=== PATIENT | female | born 1955 | race Caucasian/White ===

== ENCOUNTER 2016-12-31 08:21 | Day surgery (SDC) | payer OTHER ==
--- NOTE | 2016-12-30 14:18 | HISTORY AND PHYSICAL E ---
History and Physical NAME: ROSALINE GOODMAN : 1955 AGE: 61Y ADMITTED: 12/31/2016 ROOM: HISTORY: Known to me. I saw her back in 2006 for dysphagia, upper endoscopy for dysphagia. She does see Dr. Neha Barboza, where she did have upper endoscopy. The patient did have upper endoscopy by Dr. Neha Barboza for dysphagia. Now, patient for colon exam. I saw her in 2009, and she did have esophagitis, gastritis, no ulcers. The patient presents at this time for colonoscopy. The patient did have ultrasonography, which shows the following: Ultrasound of liver normal. Gallbladder resected. White count 5, hemoglobin 13. Patient at this time for colon exam. The patient does have reflux. Abdominal pain. She did have cholecystectomy. The patient is on PPI. Question of Crohn's disease, IBS, diverticulosis. ALLERGIES: 1. SULFA. 2. BACTRIM. PHYSICAL EXAMINATION: GENERAL: Pleasant, alert, oriented, in no acute distress. VITAL SIGNS: Blood pressure 120/80, pulse 80, respirations 18, temp is 98. HEAD, EYES, EARS, NOSE, THROAT: Normal. NECK: Supple. LUNGS: Clear. ABDOMEN: Soft. NEUROLOGIC: Exam negative. CONCLUSION: Question diverticulosis. PLAN: Colon screening. Admit 12/31. DICTATING PHYSICIAN: BASSEM SKELTON M.D. [id number] PHY#: [id number] ID: [id number] JOB#: [id number] ACCT: [id number] cc:BASSEM SKELTON M.D. >
[~2016-12-31 08:21] MED LIST: EPINEPHRINE INJ 1 MG/10 ML DISP.SYRIN ONE; FLUMAZENIL INJ 0.5 MG/5 ML VIAL IV ONE; GLUCAGON,HUMAN RECOMB 1 MG INJ ONE; GLYCOPYRROLATE INJ 0.4 MG/2 ML VIAL ONE; LIDOCAINE 2% JELLY 30 ML TUBE ONE; NALOXONE HCL INJ/PF 0.4 MG/1 ML SDV ONE; ONDANSETRON HCL INJ/PF 4 MG/2 ML SDV ONE
[2016-12-31] MEDS: MIDAZOLAM 2 MG/2 ML INJ ONE ×2 (09:31→09:36)
[2016-12-31] MEDS: FENTANYL CITRATE INJ/PF 100 MCG/2 ML AMPUL ONE ×2 (09:33→09:44)
[2016-12-31 11:05] LABS: ABSOLUTE LYMPHOCYTES (AUTO) 2.2 10^3/uL (0.5-4.7); ABSOLUTE MONOCYTES (AUTO) 0.5 10^3/uL (0.1-1.4); ABSOLUTE NEUT (AUTO) 6.4 10^3/uL (1.7-8.2); BASOPHILS % (AUTO) 0.3 % (0-2); EOSINOPHILS % (AUTO) 0.5 % (0-6); HEMATOCRIT 38.4 % (36.0-47.0); HEMOGLOBIN 12.8 g/dL (12.0-15.5); LYMPHOCYTES % (AUTO) 23.8 % (13-45); MEAN CORPUSCULAR HEMOGLOBIN 30.7 pg (27.0-33.4); MEAN CORPUSCULAR HGB CONC 33.3 g/dL (32.0-36.0); MEAN CORPUSCULAR VOLUME 92 fl (80-97); MONOCYTES % (AUTO) 5.4 % (3-13); RED BLOOD COUNT 4.17 10^6/uL (3.72-5.28); RED CELL DISTRIBUTION WIDTH 13.2 % (11.5-14.0); WHITE BLOOD COUNT 9.1 10^3/uL (4.0-10.5)
[2016-12-31 11:18] VITALS: BP 138/81
[2016-12-31 11:41] LABS: ERYTHROCYTE SEDIMENTATION RATE 13 mm/hr (0-30)
--- NOTE | 2017-01-01 11:11 | OPERATIVE REPORT E ---
Operative Report NAME: ROSALINE GOODMAN : 1955 AGE: 61Y DATE OF SURGERY: 12/31/2106 ROOM: PREOPERATIVE DIAGNOSIS: Colon screening. POSTOPERATIVE DIAGNOSES: 1. External hemorrhoids mild. 2. Anal tag. 3. Mild sigmoid diverticulosis. PROCEDURE: Colonoscopy. SURGEON: BASSEM SKELTON M.D. ANESTHESIA: Versed 4 and fentanyl 100. TISSUE REMOVED OR ALTERED: Biopsy ascending colon. PROCEDURE: Rectal exam shows anal tag and external hemorrhoids. Sigmoid descending colon, mild diverticulosis. Transverse colon normal. Ascending colon normal. Cecum normal. Biopsy obtained ascending colon, rule out collagenous colitis. Cecum and ascending normal. Transverse colon normal. Sigmoid diverticulosis. Anal wart. PLAN: Hold aspirin and nonsteroidal. Soft diet. Patient advised to take MiraLax after 3 days if she does not have bowel movements. Awaiting biopsy. Consideration for colonoscopy after 10 years. Patient may need to see surgical consult regarding skin tag in the anal area, benign looking and mild external hemorrhoids. DICTATING PHYSICIAN: BASSEM SKELTON M.D. [id number] [facility]#: [id number] ID: [id number] JOB#: [id number] ACCT: [id number] cc:BASSEM SKELTON M.D. >
--- NOTE | 2017-01-01 11:14 | DISCHARGE SUMMARY E ---
Discharge Summary NAME: ROSALINE GOODMAN : 1955 AGE: 61Y ADMITTED: 12/31/2016 DISCHARGED: 12/31/2016 PROCEDURE: Colonoscopy, biopsy. HISTORY: Patient is a 61-year-old female who presented for colon screening. Today's colonoscopy was successful to the cecum. There was no evidence of malignancy. She did have a 2-3 mm anal tag, mild external hemorrhoids, very mild sigmoid diverticulosis. DISCHARGE PLAN: 1. Soft, low residue diet for 3 days. 2. Patient advised to take MiraLAX after 2-3 days if there is no bowel movement. 3. We will obtain baseline CBC with sed rate. 4. Patient to see us in the office in the next few days. FINAL DIAGNOSES: 1. Sigmoid diverticulosis, mild. 2. Anal tag. 3. No malignancy. 4. External hemorrhoids. Patient discussed regarding possible upper endoscopy. We will discuss that with her in a few weeks and if she needs to have upper endoscopy she needs to have propofol in the OR with conscious sedation with anesthesia and propofol. DICTATING PHYSICIAN: BASSEM SKELTON M.D. [id number] PHY#: [id number] ID: [id number] JOB#: [id number] ACCT: [id number] cc:[facility] FLElena SOTELO. BASSEM SKELTON M.D. >
== END 2016-12-31 11:11 | disposition home or self-care (01) ==
LOC: END 08:21
PROVIDERS: ATTEND Specialist
PROC: 0DBH8ZX Excision of Cecum, Via Natural or Artificial Opening Endoscopic, Diagnostic (ICD-10-PCS; principal; 2016-12-31 09:00)
DX: Z12.11 Encounter for screening for malignant neoplasm of colon (principal); K64.4 Residual hemorrhoidal skin tags; K57.30 Diverticulosis of large intestine without perforation or abscess without bleeding; Z88.2 Allergy status to sulfonamides; Z88.1 Allergy status to other antibiotic agents
CPT/HCPCS: 45380; 36415; 85025; 85652; 88305 ×2; J2250; J3010; J1610; J2405; J0171; J2310; J3490